=== PATIENT | female | born 1985 ===

== ENCOUNTER 2018-04-16 16:20 | Inpatient (IN) | payer MEDICAID ==
[2018-04-16 18:03] VITALS: BMI 20.4
[2018-04-16] MEDS ORDERED: Sodium Citrate/Citric Acid 15 ml Sol PO ONE (18:04)
[2018-04-16] MEDS ORDERED: ceFAZolin 2 GM in Sodium Chloride 0.9% 100 ML IVPB ONE (18:04)
[2018-04-16] MEDS ORDERED: Lactated Ringer's 1,000 ML IV ONE (18:04)
[2018-04-16] MEDS ORDERED: Sodium Citrate/Citric Acid 15 ml Sol ONE (18:29)
[2018-04-16] MEDS ORDERED: cefOXitin IV 2 gm in Saline 2 GM/50 ML BAG IVPB ONE (18:30)
[2018-04-16] MEDS ORDERED: Naloxone 0.4 mg/ml Inj (Adult) IVP PRN (18:41)
[2018-04-16] MEDS ORDERED: DiphenhydrAMINE 50 mg/ml Inj IVP PRN (18:41)
[2018-04-16 18:55] LABS: BASO % 0.5 % (0.0-2.0); EOS % 0.5 % (0.0-4.0); HEMOGLOBIN 12.9 g/dL (11.0-16.0); LYMPH # 0.9 K/uL (1.0-4.3); LYMPH % 20.9 % (20.0-40.0); MEAN CELL VOLUME 100.7 fL (81.0-99.0); MEAN CORPUSCULAR HEMOGLOBIN 34.5 pg (27.0-31.0); MEAN CORPUSCULAR HGB CONC 34.3 g/dL (33.0-37.0); MEAN PLATELET VOLUME 8.5 fL (7.2-11.7); MONO # 0.3 K/uL (0.0-0.8); MONO % 6.8 % (0.0-10.0); NEUT # 3.2 K/uL (1.8-7.0); NEUT % 71.3 % (50.0-75.0); NRBC % 0.1 % (0.0-2.0); RBC 3.73 Mil/uL (3.80-5.20); RED CELL DISTRIBUTION WIDTH 13.7 % (11.5-14.5); WHITE BLOOD COUNT 4.5 K/uL (4.8-10.8)
[2018-04-16 19:05] LABS: ALB/GLOB RATIO 1.1 (1.0-2.1); ALBUMIN 3.3 g/dL (3.5-5.0); ALT/SGPT 23 U/L (9-52); AST/SGOT 25 U/L (14-36); BLOOD UREA NITROGEN 7 mg/dL (7-17); CALCIUM 8.6 mg/dl (8.6-10.4); GFR NON-AFRICAN AMERICAN > 60
[2018-04-16] MEDS ORDERED: cefOXitin IV 2 gm in Dextrose 2 GM/50 ML BAG IVPB ONE (19:17)
[2018-04-16] MEDS ORDERED: Oxytocin 20 units in LR 2,000 ML IV ONE (19:27)
[2018-04-16] MEDS ORDERED: Morphine 1 mg/ml preservative-free Inj(Duramorph) ONE (19:32)
[2018-04-16] MEDS ORDERED: Oxycodone/Acetaminophen 5/325 mg Tab PO PRN ×2 (20:52)
--- NOTE | 2018-04-16 21:06 | OBADHP ---
Datetime: 04/16/2018 21:02 Admit Comment, IP Provider: A/P: 32 yo previous C/S at 38+6wks with SROM - stable, afebrile - prev c/s x2 - + pooling, ferning - prep for OR - tubal consents signed Pelvic Type - PN: Adequate Extremities - PN: Normal Abdomen - PN: Normal Back - PN: Normal Breast - PN: Normal Lungs - PN: Normal Heart - PN: Normal Thyroid - PN: Normal Neurologic - PN: Normal HEENT - PN: Normal General - PN: Normal Presentation-Admit: Vertex FHR - Baseline A Provider: 130 Amniotic Fluid Color, Provider: Clear Membranes, Provider: Ruptured Gestation - Est Wks by US: 38.6 Pool Provider: Positive Nitrazine Provider: Positive Vital Signs Provider: Reviewed; Within Normal Limits IP Chief Complaint: Suspected ruptured membranes NICHD Variability Prov Fetus A: Moderate 6-25bpm NICHD Accel Fetus A IP Provider: [id number] FHR Category Provider Fetus A: Category I NICHD Decel Fetus A IP Provider: None Dilatation, Provider: 1 Effacement, Provider: 50 Station, Provider: -3 Genitourinary Exam: Normal DTRs - PN: Normal EGA AdmitDate IP: 38.6 IP Adm Impression: Ruptured Membranes IP Admit Plan: Initiate Section protocol
--- NOTE | 2018-04-16 21:09 | OBDS ---
DELIVERY PERSONNEL Delivery Doctor: Jemal Wiggins DO Scrub Nurse: Cheyenne Lr OBT Fisher Mussel: Lashon Woo RN Anesthesiologist: Bakari Montano MD MATERNAL INFORMATION Delivery Anesthesia: Spinal Medications in Delivery: Pitocin 20 units IV Estimated Blood Loss (ml): 800 Placenta Cultured: No Maternal Complications: None RN Comments: Repeat CS to a live baby girl with of 02/19 LABOR SUMMARY EDC: 04/24/2018 00:00 No. Babies in Womb: 1 Attempted: No Labor Anesthesia: None LABOR INFORMATION Reason for Induction: Not Applicable Oxytocin: N/A Group B Beta Strep: Negative Steroids Given: None Reason Steroids Not Administered: Not Applicable MEMBRANES Membranes Rupture Method: Spontaneous Rupture of Membranes: 04/16/2018 15:00 Length of Rupture (hrs): 4.88 Amniotic Fluid Color: Clear Amniotic Fluid Amount: Moderate Amniotic Fluid Odor: Normal STAGES OF LABOR Stage 3 hrs: 0 Stage 3 min: 1 CSECTION DELIVERY Primary Indication: Repeat Elective Secondary Indication: Voluntary Sterilization CSection Urgency: Elective CSection Incidence: Repeat Labor: No Labor Elective: Elective CSection Incision: Lower Uterine Transverse Sterilization Procedure: [place] BABY A INFORMATION Infant Delivery Date/Time: 04/16/2018 19:53 Method of Delivery: Born in Route : No : N/A Forceps: N/A Vacuum Extraction: N/A Shoulder Dystocia : No SHOULDER DYSTOCIA BABY A Delivery Date/Time: 04/16/2018 19:53 PRESENTATION/POSITION BABY A Presentation: Cephalic Cephalic Presentation: Vertex Vertex Position: Left Occipital Anterior Breech Presentation: N/A PLACENTA INFORMATION BABY A Placenta Delivery Time : 04/16/2018 19:54 Placenta Method of Delivery: Manual Removal Placenta Status: Delivered INFANT INFORMATION BABY A Gestational Age at Delivery: 38.6 Gestational Status: Term Outcome : Liveborn Condition : Stable Sex: Female IDENTIFICATION/MEDS BABY A ID Band Number: [id number] ID Band Location: Left Leg; Left Arm Sensor Applied: Yes Sensor Number: [id number] Sensor Location : Cord Clamp Vitamin K Given : Aquamephyton 1 mg IM Erythromycin Given: Given Both Eyes WEIGHT/LENGTH BABY A Birthweight (gms): 2645 Weight (lb): 5 Weight (oz): 13 Length Inches: 18.00 Length cms: 45.7 CORD INFORMATION BABY A No. Cord Vessels: 3 Nuchal Cord : N/A Cord Blood Taken: Yes Suction: None ASSESSMENT BABY A Complications: None Physical Findings at Delivery: Within Normal Limits Infant Respirations: Appears Normal Envelope Machine Operator/ALS Called : Yes Care By: Dr Ruffin Transferred To: Remains with Mother
[2018-04-17 08:15] LABS: HEMOGLOBIN 11.7 g/dL (11.0-16.0); MEAN CELL VOLUME 100.4 fL (81.0-99.0); MEAN CORPUSCULAR HGB CONC 34.9 g/dL (33.0-37.0); RBC 3.34 Mil/uL (3.80-5.20); RED CELL DISTRIBUTION WIDTH 13.7 % (11.5-14.5); WHITE BLOOD COUNT 5.8 K/uL (4.8-10.8)
[2018-04-17] MEDS: Simethicone 80 mg Chewtab PO SCH ×3 (09:01→17:04)
[2018-04-17] MEDS: Potassium Chloride 20 mEq ER Tab PO SCH ×2 (10:09→10:10)
[2018-04-17] MEDS: Prenatal Multivit/Folic Acid/Iron Tab PO SCH (13:38)
[2018-04-17] MEDS ORDERED: Potassium Chloride 20 mEq ER Tab PO ONE (14:00)
[2018-04-17 17:26] VITALS: RESP 18
--- NOTE | 2018-04-18 00:40 | OBPPN ---
Datetime: 04/17/2018 10:30 PP Pain Prov: Within normal limits PP Nausea Prov: Denies PP Flatus Prov: No PP BM Prov: No PP Breasts Prov: Not Done PP Heart Prov: Normal PP Lungs Prov: Normal PP Abdomen/Uterus Prov: Normal PP Lochia Prov: Normal PP Vulva/Perineum Prov: Normal PP CVA Tenderness Prov: Normal PP Extremities Prov: Normal PP C/S Incision Prov: Normal PP Progress Prov: Normal PP Comments Phys Exam Prov: Fundus firm and non-tender PP Impression Prov: Normal progression PP Plan Prov: Continue present management PP Progress Note Prov: POD # 1 S/P Repeat C/S Post Op H_H 11.7/33.5 Voiding, eating OK Stable and Satisfactory condition and recovery Advance care Encourage increas po water intake. IS use and ambulation IP PP Procedures: None
[2018-04-18] MEDS ORDERED: Benzocaine/Menthol (Cepacol) Lozenge MT SCH (04:00)
[2018-04-18] MEDS ORDERED: Benzocaine/Menthol (Cepacol) Lozenge MT PRN (07:51)
[2018-04-18] MEDS: guaiFENesin 100 mg/5 ml Syrup UD PO PRN ×2 (11:20→18:51)
[2018-04-18] MEDS: Prenatal Multivit/Folic Acid/Iron Tab PO SCH (11:21)
[2018-04-18] MEDS: Simethicone 80 mg Chewtab PO SCH ×4 (11:21→21:37)
--- NOTE | 2018-04-18 14:46 | OBPPN ---
Datetime: 04/18/2018 07:00 PP Pain Prov: Within normal limits PP Nausea Prov: Denies PP Flatus Prov: Yes PP BM Prov: Yes PP Breasts Prov: Not Done PP Heart Prov: Normal PP Lungs Prov: Normal PP Abdomen/Uterus Prov: Normal PP Lochia Prov: Normal PP Vulva/Perineum Prov: Normal PP CVA Tenderness Prov: Normal PP Extremities Prov: Normal PP C/S Incision Prov: Normal PP Progress Prov: Normal PP Comments Phys Exam Prov: Gen: sitting in chair in NAD Heart: S1, S2, RRR Chest: CTA b/l Abd: soft, +BS, appropriate tender to palpate, surgical incision appears clean and intact, no eryt shaka, no swelling, no discahrge, david in place. Fundal height 2 fingers below umbilicus level Ext: peripheral pulses palpable, no edema or cyanosis PP Impression Prov: Normal progression PP Plan Prov: Continue present management; consult PP Progress Note Prov: Patient seen and examined at bedside. POD#2 s/p C/S in the setting of ROM and tubal ligation. Patient has mild non productive cough and nasal congestion that has been present for 4 days before delivery date, denied chest pain, fever, chills or sore throat. Tolerated her regular diet. Passing flatus and BM. Ambulating out of bed to chair. Mild abdominal pain, managed with ibupro fen. Denied nausea, vomiting . No problems breast feeding. Vital signs stable. Baby is doing well. A/P: 32 y/o . POD#2 s/p C/S in the setting of ROM and tubal ligation Normal PP progression Continue PP management Pain management Encourage ambulation Robitussin given for cough Repeat CPM for K level after repleting Estimated discharge home tomorrow Case reviewed and discussed with attending Dr Nehemias Silveira, , PGY1 Attending Note: Patient seenaand evaluated by me with the Resident. I agree with the above as docu mented. Follow up K+. Patient is clinically stable.
[2018-04-19] MEDS: guaiFENesin 100 mg/5 ml Syrup UD PO PRN (07:56)
[2018-04-19] MEDS: Simethicone 80 mg Chewtab PO SCH (09:10)
[2018-04-19] MEDS: Prenatal Multivit/Folic Acid/Iron Tab PO SCH (09:11)
[2018-04-19 09:47] VITALS: BP 104/64; PULSE 72; TEMP 98.4; O2SAT 98
--- NOTE | 2018-04-19 16:28 | CP.PCM.DIS ---
Provider - Provider Date of Admission: 04/16/18 17:45 Attending physician: Austin Wiggins DO Time Spent in preparation of Discharge (in minutes): 45 Hospital Course - Lab Results Lab Results: Most Recent Lab Values WBC 5.8 K/uL (4.8-10.8) 04/17/18 08:03 RBC 3.34 Mil/uL (3.80-5.20) L 04/17/18 08:03 Hgb 11.7 g/dL (11.0-16.0) 04/17/18 08:03 Hct 33.5 % (34.0-47.0) L 04/17/18 08:03 MCV 100.4 fL (81.0-99.0) H 04/17/18 08:03 MCH 35.0 pg (27.0-31.0) H 04/17/18 08:03 MCHC 34.9 g/dL (33.0-37.0) 04/17/18 08:03 RDW 13.7 % (11.5-14.5) 04/17/18 08:03 Plt Count 171 K/uL (130-400) 04/17/18 08:03 MPV 8.0 fL (7.2-11.7) 04/17/18 08:03 Neut % (Auto) 71.3 % (50.0-75.0) 04/16/18 18:48 Lymph % (Auto) 20.9 % (20.0-40.0) 04/16/18 18:48 [place] % (Auto) 6.8 % (0.0-10.0) 04/16/18 18:48 Eos % (Auto) 0.5 % (0.0-4.0) 04/16/18 18:48 Baso % (Auto) 0.5 % (0.0-2.0) 04/16/18 18:48 Neut # (Auto) 3.2 K/uL (1.8-7.0) 04/16/18 18:48 Lymph # (Auto) 0.9 K/uL (1.0-4.3) L 04/16/18 18:48 [place] # (Auto) 0.3 K/uL (0.0-0.8) 04/16/18 18:48 Eos # (Auto) 0.0 K/uL (0.0-0.7) 04/16/18 18:48 Baso # (Auto) 0.0 K/uL (0.0-0.2) 04/16/18 18:48 Sodium 137 mmol/L (132-148) 04/16/18 18:48 Potassium 3.4 mmol/L (3.6-5.2) L 04/16/18 18:48 Chloride 106 mmol/L (98-107) 04/16/18 18:48 Carbon Dioxide 23 mmol/L (22-30) 04/16/18 18:48 Anion Gap 11 (10-20) 04/16/18 18:48 BUN 7 mg/dL (7-17) 04/16/18 18:48 Creatinine 0.3 mg/dL (0.7-1.2) L 04/16/18 18:48 Est GFR ( Amer) > 60 04/16/18 18:48 Est GFR (Non-Af Amer) > 60 04/16/18 18:48 Random Glucose 66 mg/dL (65-105) 04/16/18 18:48 Calcium 8.6 mg/dl (8.6-10.4) 04/16/18 18:48 Total Bilirubin 0.5 mg/dL (0.2-1.3) 04/16/18 18:48 AST 25 U/L (14-36) 04/16/18 18:48 ALT 23 U/L (9-52) 04/16/18 18:48 Alkaline Phosphatase 143 U/L (38-126) H 04/16/18 18:48 Total Protein 6.4 g/dL (6.3-8.3) 04/16/18 18:48 Albumin 3.3 g/dL (3.5-5.0) L 04/16/18 18:48 Globulin 3.1 gm/dL (2.2-3.9) 04/16/18 18:48 Albumin/Globulin Ratio 1.1 (1.0-2.1) 04/16/18 18:48 RPR Nonreactive (NONREACTIVE) 04/16/18 18:48 Blood Type O POSITIVE 04/16/18 18:48 Antibody Screen Negative 04/16/18 18:48 - Hospital Course Hospital Course: 32 y/o female with IUP at 38.6 weeks presents with SROM. Patient had previous C/S x2. Patient admit to movement. She denied vaginal bleeding. On pelvic exam, /-3 on admission,+pooling, ferning with clear amniotic fluid. FHR category 1. Vital signs stable. Consent obtained from the patient for repeat C/S and tubal ligation (as per patient request). Risks and complications of both procedures explained to the patient with verbalized understanding. Anesthesia consulted. Patient was given spinal anesthesia, lower uterine transverse incision with estimated blood loss of 800 cc. Procedure went well and patient gave to a live baby girl, 2645 gm with of 02/19. Both mother and baby are stable and transferred to post post area. Post operative pain controlled with motrin, patient was ambulating in the room, tolerating diet. Patient has had cough with clear sputum and sometime green few days prior to hospital admission. Patient denied fever,chills, chest pain, SOB . Robitussin was given during admission and Zithromax was given upon discharge. Patient was clinically stable on POD#3. Baby is stable, on breast feeding. Both mother and baby were good for discharge home today. Patient was given additional instructions for follow up. Discharge Plan - Discharge Medications Prescriptions: Azithromycin [Z-Luis A] 250 mg PO DAILY #6 tab - Follow Up Plan Condition: GOOD Disposition: HOME/ ROUTINE Instructions: Sudden Infant Syndrome (SIDS), Depression, Jaundice in Babies, ( Delivery), Reducing the Risk of Sudden Infant Syndrome, Diet, Safety Tips for Sleeping Babies, Surgical Wound (DC), Car Seat Safety, Breast Care for the Woman, Common Problems, The Importance of Your Baby, How to Express, Store, and Handle Breast Milk, Bleeding, What to Watch for After You Have a Baby
--- NOTE | 2018-04-19 19:04 | OBDCSUM ---
Datetime: 04/19/2018 16:30 Discharged to, Provider: Home Disch Instr Activity: Normal activity; May Shower Disch Instr Diet: Regular Discharge Instructions, Provider: Routine instructions given Discharge Time: 04/19/2018 16:31 Disch Referrals: None Contraception after Delivery: Tubal Ligation Datetime: 04/19/2018 13:18 Discharged to, Provider: Home Follow up at, Provider: MARIA ELENA Disch Instr Activity: Normal activity Disch Instr Diet: Regular Discharge Diet restrict Prov: none Discharge Instructions, Provider: Routine instructions given Discharge Diagnosis, Provider: Term Delivered Discharge Time: 04/19/2018 13:30 Follow up in weeks, Provider: 2017 for removal of david Disch Referrals: None Disch Activity Restrictions: No exercising; No lifting; No driving; Minimize walking; Minimize stair -climbing; No sexual activity; Nothing in vagina - [place], tampons, douche Discharge Comment, Provider: 32 y/o female with IUP at 38.6 weeks . Patient has had cough wi th clear sputum and sometime green few days prior to hospital admission. Patient denied fever,chills, chest pain, SOB . Robitussin was given during admission and Zithromax was given upon discharge. POD # 3 S/P repeat C/S # 3 Stable and Satisfactory condition and Recovery Tolerating diet well, + flatus and BM Requesting D/C home Discharged home with instructions and Rx for Motrin Will f/up with her Clinic in 7-10 days or prn Counseled to increase po water intake and activity gradually. Laron Silveira, , PGY1 Contraception after Delivery: Tubal Ligation
== END 2018-04-19 13:30 | disposition home or self-care (01) | DRG 540 ==
LOC: C.EROB 16:20 → C.4D 17:45 → C.4M 23:36
PROVIDERS: ADMIT Obstetrics & Gynecology; ATTEND Obstetrics & Gynecology
PROC: 10D00Z1 Extraction of Products of Conception, Low, Open Approach (ICD-10-PCS; principal; 2018-04-16)
PROC: 0UB70ZZ Excision of Bilateral Fallopian Tubes, Open Approach (ICD-10-PCS; 2018-04-16)
DX: O34.211 Maternal care for low transverse scar from previous cesarean delivery (principal); Z30.2 Encounter for sterilization; Z3A.38 38 weeks gestation of pregnancy; Z37.0 Single live birth